=== PATIENT | female | born 1945 | race Hispanic/Latino ===

== ENCOUNTER 2017-11-11 08:43 | Day surgery (SDC) | payer MEDICARE ==
[~2017-11-11] VITALS: Ht 152.4 cm; Wt 122.5 kg
[~2017-11-11 08:43] MED LIST: DOXY100C2 PO; GLYB-226 PO; LINA5TAB PO; LOSA100T29 PO; SIMV40TA5 PO; SITA100T12 PO; SODIUM CHLORIDE 0.9% 1000ML 1,000 ML IV ONE
[2017-11-11 09:46] VITALS: BP 181/73
[2017-11-11 10:42] VITALS: BP 124/60
== END 2017-11-11 11:15 | disposition home or self-care (01) ==
LOC: ENDO 08:43 → DAH 08:43 → ENDO 11:15
PROVIDERS: ATTEND Internal Medicine Gastroenterology
DX: D12.0 Benign neoplasm of cecum (principal); D12.2 Benign neoplasm of ascending colon; D12.3 Benign neoplasm of transverse colon; K63.5 Polyp of colon; Z86.010 Personal history of colon polyps; E11.9 Type 2 diabetes mellitus without complications; I10 Essential (primary) hypertension; E78.5 Hyperlipidemia, unspecified; E66.9 Obesity, unspecified; Z98.890 Other specified postprocedural states; K64.1 Second degree hemorrhoids
CPT/HCPCS: 45380; 45385; 82948 ×2; 88305; 93005; A4606; J7030